=== PATIENT | female | born 1985 | race African-American/Black ===

== ENCOUNTER 2017-08-07 14:18 | Observation (INO) | payer SELFPAY ==
[~2017-08-07] VITALS: Ht 165.1 cm; Wt 90.7 kg
[2017-08-07] MEDS ORDERED: LACTATED RINGERS 1,000 ML IV SCH (15:00)
[2017-08-07 15:02] LABS: CLARITY URINE CLOUDY (CLEAR); COLOR URINE YELLOW (YELLOW); KETONES URINE NEGATIVE (NEGATIVE); LEUKOCYTE ESTERASE URINE 3+ (NEGATIVE); NITRITE URINE NEGATIVE (NEGATIVE); OCCULT BLOOD URINE NEGATIVE (NEGATIVE); PROTEIN URINE NEGATIVE (NEGATIVE)
[2017-08-07] MEDS ORDERED: METRONIDAZOLE 500MG TABLET PO NR (15:45)
[2017-08-07] MEDS ORDERED: ASPI-1159 PO (15:57)
== END 2017-08-07 16:50 | disposition home or self-care (01) ==
LOC: L&D 14:18
PROVIDERS: ADMIT Obstetrics & Gynecology; ATTEND Obstetrics & Gynecology
DX: O26.893 Other specified pregnancy related conditions, third trimester (principal); R10.9 Unspecified abdominal pain; Z3A.31 31 weeks gestation of pregnancy
CPT/HCPCS: 81001; 96360; 96361; 99281; G0378; J7120